=== PATIENT | male | born 1960 | race Caucasian/White ===

== ENCOUNTER 2019-08-26 15:27 | Emergency (ER) | payer OTHER, SELFPAY ==
[2019-08-26 15:27] VITALS: BP 146/92; PULSE 84; RESP 14; TEMP 36.7; O2SAT 96
[2019-08-26 15:30] VITALS: BP 110/96; RESP 18; O2SAT 96
--- NOTE | 2019-08-26 15:34 | ED.CHESTPAIN ---
HPI - Chest Pain General Chief Complaint: Anxiety Stated Complaint: AMB Time Seen by Provider: 08/26/19 15:34 Source: patient Mode of arrival: EMS Limitations: no limitations History of Present Illness HPI narrative: 59-year-old male patient is brought to the emergency department by EMS. The patient states that [place] visiting with his daughter and he started feeling shaky with numbness going down his arms and around his mouth. The patient states that he is not worried that this might be something to do with his heart and he called 911. On arrival to the ER the patient denies any chest pain and he is still complaining about feeling anxious with numbness and tingling of his both arms and around the mouth. He denies any shortness of breath, nausea, diaphoresis or dizziness. Patient does admit to drinking a small amount of vodka around 6:00 a.m. this morning and he does admit to having problems with alcohol abuse. Patient states that he was admitted in January for alcohol rehab and stayed sober for about 3 months and months back he started drinking again and drinks about a pt of vodka every day. Patient does have a history of hypertension and is on the medication for the same as well as depression. He does admit to being under stress at this time. Risk Factors Coronary artery disease risk factors: hypertension Related Data Home Medications Medication Instructions Recorded Confirmed amlodipine 5 mg PO DAILY 08/26/19 08/26/19 aspirin [Adult Low Dose Aspirin] 81 mg PO DAILY 08/26/19 08/26/19 doxazosin 4 mg PO HS 08/26/19 08/26/19 escitalopram oxalate 20 mg PO DAILY 08/26/19 08/26/19 losartan 100 mg PO DAILY 08/26/19 08/26/19 trazodone 50 mg PO HS 08/26/19 08/26/19 Allergies Allergy/AdvReac Type Severity Reaction Status Date / Time No Known Allergies Allergy Verified 08/26/19 16:00 Review of Systems Review of Systems: All systems reviewed & are unremarkable except as noted in HPI and below Constitutional: Constitutional: Reports as per HPI Eyes: Eyes: Reports no additional eye complaints ENT: Reports system reviewed and no additional complaints, except as documented Cardiovascular: Cardiovascular: Reports no additional cardiovascular complaints Respiratory: Respiratory: Reports no additional respiratory complaints Gastrointestinal: Gastrointestinal: Reports no additional gastrointestinal complaints Genitourinary: Genitourinary: Reports no additional male genitourinary complaints Musculoskeletal: Musculoskeletal: Reports no additional musculoskeletal complaints Integumentary/Breasts: Skin/Breast: Reports system reviewed and no additional complaints, except as docu Neurologic: Reports system reviewed and no additional complaints, except as documented Psychiatric: Psychiatric: Reports anxiety and Reports depression Endocrine: Endocrine: Reports no additional endocrine complaints Hematologic/Lymphatic: Hematologic/Lymphatic: Reports no additional hematologic/lymphatic complaints Allergic/Immunologic: Allergic/Immunologic: Reports no additional allergic/immunologic complaints PMFSH Past Medical History Medical History (Updated 08/26/19 @ 19:17 by Tessa Hale MD) Alcoholism Depression Hypertension Surgical History Surgical History (Updated 08/26/19 @ 16:39 by Tessa Hale MD) No pertinent past surgical history Social History Social History (Updated 08/26/19 @ 16:40 by Tessa Hale MD) Smoking status: Never smoker Alcohol intake: current Alcohol use details: Drinks a pint of vodka daily Substance use: never Exam Const: General: healthy appearing, no acute distress and alert Orientation/consciousness: patient oriented x3 HENMT: Head: normal to inspection Eyes: Conjunctivae: conjunctivae normal Pupils: Equal, round and reactive pupils present EOM: EOMs intact bilaterally Neck: Neck: normal visual inspection and no lymphadenopathy Toshia
--- NOTE | 2019-08-26 15:54 | ECG_ITS ---
Measurements Intervals [place] Rate: 81 P: 11 MD: 152 QRS: -15 QRSD: 105 T: 9 QT: 368 QTc: 427 Interpretive Statements SINUS RHYTHM BORDERLINE R WAVE PROGRESSION, ANTERIOR LEADS INFERIOR INFARCT, AGE INDETERMINATE BORDERLINE ST ABNORMALITY- HIGH LATERAL LEADS ABNORMAL ECG Electronically Signed On 08-26-2019 16:54:58 CDT by Jaison Buckley D.O.
[2019-08-26 16:00] VITALS: BP 138/92; PULSE 94; RESP 18; O2SAT 97
[2019-08-26 16:20] LABS: Basophils Absolute Auto 0.04 K/mm3 (0.00-0.10); Basophils Percent Auto 0.9 % (0.0-1.0); Eosinophils Absolute Auto 0.03 K/mm3 (0.02-0.50); Eosinophils Percent Auto 0.6 % (1.0-6.0); Hematocrit 42.3 % (40.0-54.0); Hemoglobin 14.9 g/dL (14.0-18.0); Immature Granulocyte Absolute 0.01 K/mm3 (0.00-0.00); Immature Granulocyte Percent A 0.2 % (0.0-0.0); Lymphocytes Absolute Auto 1.09 K/mm3 (1.10-4.50); Lymphocytes Percent Auto 23.6 % (18.0-42.0); Mean Corpuscular HGB Conc 35.2 g/dL (32.0-36.0); Mean Corpuscular Hemoglobin 31.3 pg (27.0-31.0); Mean Corpuscular Volume 88.9 fL (78.0-102.0); Mean Platelet Volume 9.2 fl (8.7-11.0); Monocytes Absolute Auto 0.33 K/mm3 (0.10-0.90); Monocytes Percent Auto 7.1 % (2.0-11.0); Neutrophils Absolute Auto 3.1 K/mm3 (1.7-7.2); Neutrophils Percent Auto 67.6 % (50.0-70.0); Platelet Count Result 240 K/mm3 (150-420); Red Blood Count 4.76 M/mm3 (4.70-6.10); Red Cell Distribution Width 12.6 % (11.6-14.4); White Blood Count 4.6 K/mm3 (4.8-10.8)
[2019-08-26 16:30] VITALS: BP 133/92; PULSE 99; RESP 18; O2SAT 99
[2019-08-26] MEDS: FOLIC ACID 1 MG TABLET PO (16:30)
[2019-08-26] MEDS: chlordiazePOXIDE 25 MG CAPSULE 50 MG PO (16:30)
[2019-08-26 16:43] LABS: Alanine Aminotransferase 35 U/L (16-63); Albumin Level 3.9 g/dL (3.4-5.0); Alkaline Phosphatase 86 U/L (46-116); Anion Gap 18.1 mmol/L (7-16); Aspartate Amino Transferase 26 U/L (15-37); Bilirubin,Total 0.4 mg/dL (0.00-1.00); Blood Urea Nitrogen 12 mg/dL (7-18); Calcium 8.6 mg/dL (8.5-10.1); Carbon Dioxide 25 mmol/L (21-32); Chloride 99 mmol/L (98-108); Creatine Kinase 77 U/L (39-308); Estimated CRCL calculation 64 ml/min; Estimated Glomerular Filt Rate > 60; Glucose 122 mg/dL (70-99); Osmolality Calculated 288 mOsm/kg (285-295); Potassium 3.1 mmol/L (3.5-5.1); Sodium 139 mmol/L (136-145); Total Protein 7.7 g/dL (6.4-8.2)
[2019-08-26 16:48] LABS: Troponin I < 0.02 ng/mL (0.00-0.056)
[2019-08-26 16:50] LABS: Ethanol 71 mg/dL (0-6)
--- NOTE | 2019-08-26 17:08 | PC.NURSE ---
PT. VERBALIZES AT ABOUT 16:15 ON 08/26/2019 TO RN THAT HE WAS HAVING SEVERE ANXIETY. PT. BEGAN TO HYPERVENTILATE AND EXPLAINED THAT HE HAS BEEN TRYING TO QUIT DRINKING. PT. IS VISIBLY SHAKING AND MD IS NOTIFIED AND ORDER FOR LIBRIUM WAS ORDERED AND ADMINISTERED AT 16:25. LACTATED RINGERS IN D5 WITH THIAMINE, MAG AND MULTIVITAMINS RUNNING WIDE OPEN WAS INITITATED AT 1630. AT 1700 PT. STILL EXPERIENCING SEVERE ANXIETY AND ETOH WITHDRAWL AND ORDERED IV ATIVAN WHICH WAS ADMINISTERED AT 1705. PT. CURRENTLY RESTING IN BED AND VERBALIZES A DECREASE IN WITHDRAWL SYMPTOMS. RN EDUCATED PT. ON ALCOHOL WITHDRAWL.
[2019-08-26 17:21] LABS: Magnesium 1.2 mg/dL (1.8-2.4)
[2019-08-26 17:30] VITALS: BP 149/86; PULSE 79; RESP 18; O2SAT 97
[2019-08-26] MEDS: POTASSIUM BICARBONATE 25 MEQ TABEF PO (18:29)
[2019-08-26] MEDS: MAGNESIUM SULF 2 GM/WATER 50ML 2 GM/50 ML BAG IVPB (18:29)
[2019-08-26 19:27] VITALS: BP 149/92; PULSE 91; RESP 16; O2SAT 95
== END 2019-08-26 20:04 | disposition home or self-care (01) ==
PROVIDERS: Emergency Provider Emergency Medicine
DX: F10.239 Alcohol dependence with withdrawal, unspecified (principal); F41.0 Panic disorder [episodic paroxysmal anxiety]; F41.9 Anxiety disorder, unspecified; R06.4 Hyperventilation; F10.20 Alcohol dependence, uncomplicated
CPT/HCPCS: 36415; 80053; 80307; 82550; 82553; 83735; 84484; 85025; 93005; 96365; 96367; 96375; 99283; 99284; A9270; J2060; J3411; J3475; J7121